=== PATIENT | female | born 1995 | race African-American/Black ===

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

== ENCOUNTER 2018-03-18 12:03 | Emergency (ER) | payer BC, OTHER ==
--- NOTE | 2018-03-18 14:38 | ER Document Report ---
ED Medical Screen (RME) - General Chief Complaint: Near Syncope Stated Complaint: WEAKNESS Time Seen by Provider: 03/18/18 14:36 Primary Care Provider: KAMI SAENZ MD [Primary Care Provider] - Follow up as needed Mode of Arrival: Ambulatory Information source: Patient Cannot obtain history due to: Dementia Notes: 22-year-old female presents to ED for complaint of feeling over hot vision blurry hearing fading and then passing out. She states after her hearing started fading she does not remember anything else until EMS was called. She states that she has done this once before but nothing recently. Patient is alert and oriented respirations regular and on unlabored speaking in full sentences. She states she does have a history of hypothyroid but no surgeries. Lungs clear respirations regular and unlabored speaking in full sentences walks with a even steady gait. I have greeted and performed a rapid initial assessment of this patient. A comprehensive ED assessment and evaluation of the patient, analysis of test results and completion of medical decision making process will be conducted by an additional ED providers. TRAVEL OUTSIDE OF THE [place] IN LAST 30 DAYS: No - Related Data Allergies/Adverse Reactions: No Known Allergies Allergy (Verified 03/18/18 12:06) Past Medical History - Social History Chew tobacco use (# tins/day): No Frequency of alcohol use: None Drug Abuse: None Renal/ Medical History: Denies: Hx Peritoneal Dialysis Physical Exam - Vital signs Vitals: Temp Pulse Resp BP Pulse Ox 97.6 F 74 18 128/87 H 100 03/18/18 12:23 03/18/18 12:23 03/18/18 12:23 03/18/18 12:23 03/18/18 12:23 Course - Vital Signs Vital signs: Temp Pulse Resp BP Pulse Ox 97.6 F 74 18 128/87 H 100 03/18/18 12:23 03/18/18 12:23 03/18/18 12:23 03/18/18 12:23 03/18/18 12:23 Doctor's Discharge - Discharge Referrals: KAMI SAENZ MD [Primary Care Provider] - Follow up as needed
[2018-03-18 16:12] LABS: ABSOLUTE LYMPHOCYTES (AUTO) 1.6 10^3/uL (0.5-4.7); ABSOLUTE MONOCYTES (AUTO) 0.3 10^3/uL (0.1-1.4); ABSOLUTE NEUT (AUTO) 9.6 10^3/uL (1.7-8.2); BASOPHILS % (AUTO) 0.2 % (0-2); EOSINOPHILS % (AUTO) 0.1 % (0-6); HEMATOCRIT 38.1 % (36.0-47.0); HEMOGLOBIN 12.2 g/dL (12.0-15.5); LYMPHOCYTES % (AUTO) 13.9 % (13-45); MEAN CORPUSCULAR HEMOGLOBIN 24.3 pg (27.0-33.4); MEAN CORPUSCULAR HGB CONC 32.1 g/dL (32.0-36.0); MEAN CORPUSCULAR VOLUME 76 fl (80-97); MONOCYTES % (AUTO) 2.2 % (3-13); PLATELET COUNT 325 10^3/uL (150-450); RED BLOOD COUNT 5.04 10^6/uL (3.72-5.28); RED CELL DISTRIBUTION WIDTH 14.2 % (11.5-14.0); SEGMENTED NEUTROPHILS % (AUTO) 83.6 % (42-78); TOTAL CELLS COUNTED % (AUTO) 100 %; WHITE BLOOD COUNT 11.5 10^3/uL (4.0-10.5)
[2018-03-18 16:20] LABS: APPEARANCE,URINE SLIGHTLY-CLOUDY; BILIRUBIN,URINE NEGATIVE (NEGATIVE); COLOR,URINE YELLOW; GLUCOSE, URINE NEGATIVE (NEGATIVE); KETONES,URINE 20 mg/dL (NEGATIVE); LEUKOCYTE ESTERASE,URINE NEGATIVE (NEGATIVE); NITRITE,URINE NEGATIVE (NEGATIVE); PROTEIN,URINE NEGATIVE (NEGATIVE); URINE SPECIFIC GRAVITY 1.024; UROBILINOGEN,URINE NEGATIVE mg/dL (<2.0)
[2018-03-18 16:41] LABS: ALANINE AMINOTRANSFERASE 16 U/L (9-52); ALBUMIN 5.5 g/dL (3.5-5.0); ALKALINE PHOSPHATASE 69 U/L (38-126); ANION GAP 13 (5-19); ASPARTATE AMINO TRANSFERASE 21 U/L (14-36); BILIRUBIN,DIRECT 0.2 mg/dL (0.0-0.4); BILIRUBIN,TOTAL 0.4 mg/dL (0.2-1.3); BLOOD UREA NITROGEN 15 mg/dL (7-20); CALCIUM 10.8 mg/dL (8.4-10.2); CARBON DIOXIDE 27 mmol/L (22-30); CHLORIDE 104 mmol/L (98-107); GLUCOSE 90 mg/dL (75-110); POTASSIUM 4.9 mmol/L (3.6-5.0); TOTAL PROTEIN 8.7 g/dL (6.3-8.2)
[2018-03-18 16:46] LABS: URINE AMPHETAMINES SCREEN NEGATIVE; URINE BARBITURATES SCREEN NEGATIVE; URINE BENZODIAZEPINES SCREEN NEGATIVE; URINE MARIJUANA (THC) SCREEN NEGATIVE; URINE METHADONE SCREEN NEGATIVE; URINE PHENCYCLIDINE SCREEN NEGATIVE
[2018-03-18 16:56] LABS: URINE COCAINE SCREEN NEGATIVE
--- NOTE | 2018-03-18 17:26 | ER Document Report ---
ED Dizziness/Weakness - General Chief Complaint: Near Syncope Stated Complaint: WEAKNESS Time Seen by Provider: 03/18/18 14:36 Primary Care Provider: KAMI SAENZ MD [NO LOCAL MD] - Follow up as needed Mode of Arrival: Ambulatory Information source: Patient TRAVEL OUTSIDE OF THE [place] IN LAST 30 DAYS: No - HPI Patient complains to provider of: Dizziness, Near-syncope, Syncope Onset: Just prior to arrival Onset/Duration: Gradual Quality of pain: No pain Associated symptoms: Fainted, Lightheaded Notes: Patient is a 22-year-old female with a history of hyperthyroidism presenting to the emergency room today complaining of dizziness with a syncopal episode lasting an unknown amount of time, she reports that she has been feeling dizzy throughout the day today, and she was at school when she had her final episode, she is unaware of how long she was actually unresponsive for, but denies any injury as she was sitting down at the time, she denies any weight loss, no trouble sleeping, no sensation of racing heart or palpitations, she does admit that she did not eat today at all, she has a history of hyperthyroidism and currently takes methimazole 5 mg daily, this was decreased from 15 mg which was tapered down to 10 and now 5 mg for the past 3 months she has not had repeat lab work to check her thyroid level since having the recent change to 5 mg, she denies any recent illness or injury, no nausea or vomiting, no fevers, no cough cold or congestion, no chest pain or shortness of breath - Related Data Allergies/Adverse Reactions: No Known Allergies Allergy (Verified 03/18/18 12:06) Past Medical History - General Information source: Patient - Social History Smoking Status: Never Smoker Chew tobacco use (# tins/day): No Frequency of alcohol use: None Drug Abuse: None Family History: Reviewed & Not Pertinent Patient has suicidal ideation: No Patient has homicidal ideation: No Renal/ Medical History: Denies: Hx Peritoneal Dialysis Review of Systems - Review of Systems Constitutional: No symptoms reported EENT: No symptoms reported Cardiovascular: Syncope, Dizziness Respiratory: No symptoms reported Gastrointestinal: No symptoms reported Genitourinary: No symptoms reported Female Genitourinary: No symptoms reported Musculoskeletal: No symptoms reported Skin: No symptoms reported Hematologic/Lymphatic: No symptoms reported Neurological/Psychological: No symptoms reported -: Yes All other systems reviewed and negative Physical Exam - Vital signs Vitals: Temp Pulse Resp BP Pulse Ox 97.6 F 74 18 128/87 H 100 03/18/18 12:23 03/18/18 12:23 03/18/18 12:23 03/18/18 12:23 03/18/18 12:23 Interpretation: Normal - General General appearance: Appears well, Alert - HEENT Head: Normocephalic, Atraumatic Eyes: Normal Pupils: PERRL - Respiratory Respiratory status: No respiratory distress Chest status: Nontender Breath sounds: Normal Chest palpation: Normal - Cardiovascular Rhythm: Regular Heart sounds: Normal auscultation Murmur: No - Abdominal Inspection: Normal Distension: No distension Bowel sounds: Normal Tenderness: Nontender Organomegaly: No organomegaly - Back Back: Normal, Nontender - Extremities General upper extremity: Normal inspection, Nontender, Normal color, Normal ROM, Normal temperature General lower extremity: Normal inspection, Nontender, Normal color, Normal ROM, Normal temperature, Normal weight bearing. No: Genesis's sign - Neurological Neuro grossly intact: Yes Cognition: Normal Orientation: AAOx4 Hayden Coma Scale Eye Opening: Spontaneous Gloria Coma Scale Verbal: Oriented Hayden Coma Scale Motor: Obeys Commands Hayden Coma Scale Total: 15 Speech: Normal Motor strength normal: LUE, RUE, LLE, RLE Sensory: Normal - Psychological Associated symptoms: Normal affect, Normal mood - Skin Skin Temperature: Warm Skin Moisture: Dry Skin Color: Normal Course - Re-evaluation Re-evalutation: 03/18/18 18:12 Patient resting comfortably on stretcher, denies symptoms at this time, I was able to ambulate her without any difficulties, I did discuss lab findings which are unremarkable, patient advised to eat properly throughout the day, follow-up with her primary care provider and landing worker in 2-3 days or return if sy mptoms worsen, patient and mother at bedside acknowledge understanding and agreement with this plan - Vital Signs Vital signs: Temp Pulse Resp BP Pulse Ox 97.6 F 74 18 128/87 H 100 03/18/18 12:23 03/18/18 12:23 03/18/18 12:23 03/18/18 12:23 03/18/18 12:23 - Laboratory Result Diagrams: 03/18/18 15:46 03/18/18 15:46 Laboratory results interpreted by me: 03/18/18 03/18/18 03/18/18 15:45 15:46 15:46 WBC 11.5 H MCV 76 L MCH 24.3 L RDW 14.2 H Seg Neutrophils % 83.6 H Monocytes % 2.2 L Absolute Neutrophils 9.6 H Calcium 10.8 H Total Protein 8.7 H Albumin 5.5 H Urine Ketones 20 H - EKG Interpretation by Me EKG shows normal: Sinus rhythm Rate: Normal Rhythm: NSR Discharge - Discharge Clinical Impression: Dizziness Syncope Qualifiers: Syncope type: unspecified Qualified Code(s): R55 - Syncope and collapse Condition: Stable Disposition: HOME, SELF-CARE Instructions: Syncopal Episode ([facility]), Near Syncopal Episode ([facility]), Dizziness ([facility]) Additional Instructions: Follow up with your primary care provider in one to 2 days. Return to the emergency room immediately if symptoms worsen or any additional concerns. Forms: Return to School Referrals: KAMI SAENZ MD [NO LOCAL MD] - Follow up as needed
[2018-03-18 17:35] LABS: FREE T3 3.24 pg/mL (2.77-5.27); FREE T4 (FREE THYROXINE) 1.11 ng/dL (0.78-2.19)
[2018-03-18 17:49] LABS: THYROID STIMULATING HORMONE 1.29 uIU/mL (0.47-4.68)
[2018-03-18 18:29] VITALS: BP 122/72
--- NOTE | 2018-03-18 18:51 | EKG REPORT ---
SEVERITY:- NORMAL ECG - SINUS RHYTHM : Confirmed by: Dontae Gandara MD 18-Mar-2018 18:51:22
== END 2018-03-18 18:29 | disposition home or self-care (01) ==
LOC: ER 12:03
DX: R55 Syncope and collapse (principal); E05.90 Thyrotoxicosis, unspecified without thyrotoxic crisis or storm; Z79.899 Other long term (current) drug therapy
CPT/HCPCS: 36415; 80053; 80307; 81001; 84439; 84443; 84481; 84703; 85025; 93005; 93010; 99284